=== PATIENT | male | born 1965 ===

== ENCOUNTER 2022-07-21 08:34 | Outpatient (REF) | payer OTHER, SELFPAY ==
--- NOTE | 2022-07-21 09:54 | MHC.AU.MED ---
Medical Clearance for Hearing Instrumentation Date: 07/21/22 Patient Name: Leonel Ramos Date of : 1965 Primary Care Provider: Mel Mistry MD We have seen your patient on 07/21/22 and have determined that they are a candidate for amplification (See accompanying report). Specifically, they would benefit from: Hearing aid use in both ears There is a statute that addresses Medical Evaluation Requirements prior to fitting a patient with a hearing aid. According to [place] statute [facility] CMR:6.03(1), (a) General. Except as provided in 265 CMR 6.03(1)(b), a wool shearing supervisor shall not sell a hearing aid unless the prospective user has presented to the wool shearing supervisor a written statement signed by a licensed physician that states that the patient's hearing loss has been medically evaluated and the patient may be considered a candidate for a hearing aid. The medical evaluation must have taken place within the preceding six months. Please note: Due to the [place] Statute referenced above, we cannot accept a signature other than that of a licensed physician. CHIEF METER READER and PA signatures cannot be accepted. I am in agreement with the above recommendation. There is no medical contraindication for hearing instrumentation. Physician Signature Date Physician Name (Printed)
== END 2022-07-21 08:35 | disposition home or self-care (01) ==
LOC: HO.SH 08:34
PROVIDERS: Visit Provider Internal Medicine
DX: Z01.118 Encounter for examination of ears and hearing with other abnormal findings (principal); H90.3 Sensorineural hearing loss, bilateral
CPT/HCPCS: 92557; 92567

== ENCOUNTER 2022-08-11 10:29 | Outpatient (REF) | payer OTHER, SELFPAY ==
--- NOTE | 2022-08-11 12:06 | MHC.AU.HA1 ---
Hearing Aid Evaluation Date of Visit: 08/11/22 Historical Information: Description of Hearing: Within normal through 3kHz sloping to moderate sensorineural hearing loss in the right ear and within normal through 2kHz steeply sloping to moderate sensorineural hearing loss in the left ear Summary: Leonel is interested in pursuing amplification due to increased difficulty hearing in background noise and understanding speech if not [id number] with a speaker. 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 He has an active social life, including family gatherings as well as outings to restaurants. He is motivated to use and acclimate to hearing aids in order to improve his listening fatigue and overall quality of life. Hearing Aid Prescription: Based on the individual?s shared listening needs, communication environments, dexterity, desire for connectivity, and personal preferences, the following prescription for amplification has been made: Right ear: Make, Model, Color: Phonak Audeo P70-R Color: Champagne Battery Size: Rechargeable Steel Detailer/Slim Tube: 2M Type of Earmold/Dome/CShell/SlimTip: Medium open dome Left ear: Left ear prescription to be same as Right Hearing Aid above: Make, Model, Color: Phonak Audeo P70-R Color: Champagne Battery Size: Rechargeable Steel Detailer/Slim Tube: 2M Type of Earmold/Dome/CShell/SlimTip: Medium open dome Plan of Care: Patient wishes to purchase hearing aids as prescribed Action Taken/Action Needed: Prior authorization to be requested; Hearing Instrument Fitting to be scheduled when materials arrive Comments: Hearing aids will be order once prior approval through [facility] is received. Leonel will follow up with PCP for referral to communications intern due to asymmetrical hearing loss as discussed at last appointment. *Need to check Leonel's insurance eligibility on the date of the fitting, as he reported that his insurance may be changing again. Explained that if insurance is different on the day of the fitting, he will need to self-pay or will need to re-request prior approval.* Primary Diagnosis: H90.3 Bilateral Sensorineural Hearing Loss Signature: Provider: Roland Giraldo, [facility]
== END 2022-08-11 10:30 | disposition home or self-care (01) ==
LOC: HO.HAP 10:29
PROVIDERS: Visit Provider Internal Medicine
DX: Z46.1 Encounter for fitting and adjustment of hearing aid (principal); H90.3 Sensorineural hearing loss, bilateral
CPT/HCPCS: 92591

== ENCOUNTER 2022-08-25 09:28 | Outpatient (REF) | payer OTHER, SELFPAY ==
--- NOTE | 2022-08-25 08:02 | MHC.AU.NMH ---
Hearing Aid Delivery Receipt: Third Constitution Party Payor [facility] type [place] [facility] Other: Date of Fitting: End of Adjustment Period: 30 days from date of fitting Senior Landscape Architect: Right Ear: Left Ear: Make, Model, Serial Number and Color: Phonak Audeo P70-R Color: Charlene Serial #[id number] Make, Model, Serial Number and Color: Phonak Audeo P70-R Color: Charlene Serial #[id number] Flap Presser/Slim Tube: M Flap Presser 4.0 2R Flap Presser/Slim Tube: M Flap Presser 4.0 2L Earmold/Dome/CShell/SlimTip: Medium open dome Earmold/Dome/CShell/SlimTip: Medium open dome Type of Wax Guard: CeruShield Disk Type of Wax Guard: CeruShield Disk Battery Size: Rechargeable Battery Size: Rechargeable Promotions Director Repair Warranty: 11/10/2025 Promotions Director Repair Warranty: 11/10/2025 Promotions Director Loss and Damage Warranty: 11/10/2025 Promotions Director Loss and Damage Warranty: 11/10/2025 [facility] Service Agreement ends one year from date of fitting on? [facility] Service Agreement ends one year from date of fitting on Accessories/Assistive Technology: Phonak Division Order Technician Case Combi Following the expiration of [facility], charges for items and services listed above are billed at the usual and customary rate. *If coverage by third democrat payor exists, medically necessary modifications, repairs, etc. will be billed to said third democrat payor. If there is no third democrat payor eligibility beyond the service agreement or sql server consultant warranty periods, items will be billed per usual and customary rates and payment is expected at the time of service. Hearing aids that are lost or damaged beyond repair cannot be returned for credit, and the compound finisher is liable for the full purchase wheeler. My signature below acknowledges that I have read and understand this hearing aid contract and have received the goods and services out lined above. ?Date? Home Address: ? PATIENT STICKER ? This hearing aid will not restore normal hearing nor will it prevent further hearing loss. The sale of a hearing aid is restricted to those individuals who have obtained a medical evaluation from a licensed physician or division order technician. A fully informed adult whose mormon or personal beliefs preclude consultation with a physician may waive the requirement of a medical evaluation. The exercise of such a waiver is not in your best health interest and its use is strongly discouraged. It is also required that a person under the age of eighteen years obtain an evaluation by an key punch operator in addition to the medical evaluation before a hearing aid can be sold to such person. Ira De Jesus,Title XV,Chapter 93:74
== END 2022-08-25 09:29 | disposition home or self-care (01) ==
LOC: HO.HAP 09:28
PROVIDERS: Visit Provider Internal Medicine
DX: Z46.1 Encounter for fitting and adjustment of hearing aid (principal); H90.3 Sensorineural hearing loss, bilateral; H93.13 Tinnitus, bilateral
CPT/HCPCS: V5011; V5020; V5160; V5261